=== PATIENT | male | born 1985 | race Two or more races ===

== ENCOUNTER → 2017-02-20 | Outpatient (CLI) | payer OTHER ==
--- NOTE | 2017-02-20 23:57 | RADIOLOGY REPORT (SQ) ---
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 RADIONUCLIDE AND DOSE: 12.8 mCi F18 FDG The route of agent administration: Intravenous FASTING BLOOD SUGAR: 92 mg/dl CONTRAST TYPE AND DOSE: No CT contrast given. TECHNIQUE: Blood glucose level was verified. Above dose of FDG was injected intravenously. 2-D seg mented attenuation correction images were obtained from the base of the skull to the midthighs. Nonc ontrast CT images were obtained for attenuation correction and fusion with emission images. CT image s were performed without oral or intravenous contrast and are not sensitive for parenchymal lesions. A series of overlapping emission PET images were obtained. [facility] by the radiologist. Images stored on PACS. LIMITATIONS: None. FINDINGS: HEAD AND NECK: No areas of abnormal metabolic activity in the soft tissues of the head and neck. CHEST: No areas of abnormal metabolic activity in the chest. ABDOMEN AND PELVIS: No areas of abnormal metabolic activity in the abdomen or pelvis. Expected physi ologic activity is present in the genitourinary system and bowel. PROXIMAL LOWER EXTREMITIES: No areas of abnormal metabolic activity in the soft tissues of the lower extremities. BONES: No abnormal metabolic activity in the visualized skeleton. ADDITIONAL CT FINDINGS: There is splenomegaly, spleen is 16.5 cm in greatest craniocaudad length. In cidental finding of gynecomastia, small hiatal hernia, and duplication of the inferior vena cava. OTHER: Blood pool activity 1.6 SUV, liver activity 2.5 SUV IMPRESSION: Splenomegaly No hypermetabolic lesions identified TECHNICAL DOCUMENTATION: JOB ID: [id number]- All Rights Reserved
== END ==
LOC: RAD 19:50
PROVIDERS: ATTEND Internal Medicine
DX: C85.97 Non-Hodgkin lymphoma, unspecified, spleen (principal)
CPT/HCPCS: 78815; A9552